=== PATIENT | female | born 1950 | race Caucasian/White ===

== ENCOUNTER → 2025-03-04 12:12 | Outpatient (REF) | payer MEDICARE, OTHER, SELFPAY ==
[2025-03-04 13:20] LABS: Hematocrit 40.3 % (37.0-47.0); Hemoglobin 13.5 g/dL (12.0-16.0); Mean Corp Hgb Conc. 33.5 g/dL (33.0-37.0); Mean Corpuscular Volume 89.0 fL (81.0-99.0); Nucleated Red Blood Cells % 0 %; Platelet Count 360 10^3/uL (130-400); Red Cell Dist. Width 13.9 % (11.5-14.5)
[2025-03-04 14:03] LABS: Blood Urea Nitrogen 17 mg/dl (7-17); Calcium 10.4 mg/dl (8.4-10.2); Carbon Dioxide 23 mmol/L (22-30); Chloride 107 mmol/L (98-107); Glucose 90 mg/dl (70-99); Potassium 4.9 mmol/L (3.5-5.1); Sodium 138 mmol/L (135-145); eGFR > 60.00
== END ==
LOC: RCS 12:12
PROVIDERS: ATTENDING PHYSICIAN Orthopaedic Surgery; FAMILY PHYSICIAN Family Medicine
DX: Z01.818 Encounter for other preprocedural examination (principal)
CPT/HCPCS: 36415; 80048; 85025; 93005

== ENCOUNTER 2025-03-05 06:41 | Day surgery (SDC) | payer MEDICARE, OTHER, SELFPAY ==
[2025-03-05] VITALS (8 sets, daily range): BP systolic 113–142; BP diastolic 64–94; BMI 24.3
[2025-03-05] MEDS: TYLENOL 1000 MG PO (10:35)
[2025-03-05] MEDS: CELEBREX 200 MG PO (10:35)
[2025-03-05] MEDS: NORMOSOL-R/PLASMALYTE-A 1000 IV (10:47)
== END 2025-03-05 14:20 | disposition home or self-care (01) ==
LOC: SDS 06:41
PROVIDERS: ATTENDING PHYSICIAN Orthopaedic Surgery
DX: S52.571A Other intraarticular fracture of lower end of right radius, initial encounter for closed fracture (principal); V18.4XXA Pedal cycle driver injured in noncollision transport accident in traffic accident, initial encounter; Y93.55 Activity, bike riding
CPT/HCPCS: 25608; C1713